=== PATIENT | female | born 1975 | race Caucasian/White ===

== ENCOUNTER → 2017-12-15 09:40 | Outpatient (CLI) | payer BC, SELFPAY ==
--- NOTE | 2017-12-15 09:45 | US_ITS ---
US abdomen complete COMPARISON: None HISTORY: Right flank pain and back pain, some bloating TECHNIQUE: Ultrasound abdomen complete FINDINGS: The pancreas appears normal though portion of the tail is obscured by bowel gas. The liver is normal size and liver parenchyma appears normal. The gallbladder is normal in size showing partial septation near the neck and appears be small amount biliary sludge near the neck. There are no definite gallstones seen. The common bile duct is normal in caliber. The right kidney measures 9.0 x 4.3 x 5.7 cm and shows a good cortical medullary junction with no abnormality noted. The spleen is normal. The left kidney measures 8.8 x 4.2 x 6.1 cm and shows a good cortical medullary junction with no abnormality. The portal vein is normal caliber. The aorta is normal caliber with no significant arteriosclerotic plaquing noted. IMPRESSION: Small amount biliary sludge otherwise essentially unremarkable ultrasound the abdomen
== END ==
PROVIDERS: PCP Internal Medicine Adolescent Medicine; Visit Provider Internal Medicine Adolescent Medicine
DX: R10.9 Unspecified abdominal pain (principal)
CPT/HCPCS: 76700

== ENCOUNTER → 2017-12-27 10:58 | Outpatient (CLI) | payer BC, SELFPAY ==
--- NOTE | 2017-12-27 11:03 | NM_ITS ---
NM hepatobiliary wo pharm HISTORY: Right-sided pain, with bloating, abnormal gallbladder ultrasound ITS.REASON: GB SLUDGE ORDERING PHYSICIAN: Jimmy Varner MD PATIENT AGE: 42 years COMPARISON: None DOSE: 7.47 MCI TC choletec Inj into RT ANT Fatty Meal Ensure, no pain reported with fatty meal FINDINGS: Homogeneous activity is present within the hepatic parenchyma. Activity is present in the gallbladder by 5 minutes. Activity is present in the small bowel by 30 minutes. The gallbladder ejection fraction is calculated to be 16% The patient did not report pain or other symptoms during the fatty meal. IMPRESSION: 1. No evidence of common or cystic duct obstruction. 2. Low gallbladder ejection fraction of 16%. No pain was reported with the fatty meal
== END ==
PROVIDERS: PCP Internal Medicine Adolescent Medicine; Visit Provider Internal Medicine Adolescent Medicine
DX: K82.8 Other specified diseases of gallbladder (principal)
CPT/HCPCS: 78226; A9537

== ENCOUNTER → 2018-01-09 14:15 | Outpatient (CLI) | payer BC, SELFPAY ==
[2018-01-09 15:19] LABS: Alanine Aminotransferase 17 U/L (12-78); Albumin Level 3.4 gm/dL (3.4-5.0); Albumin/Globulin Ratio 1.1 (1.1-1.8); Alkaline Phosphatase 80 U/L (46-116); Aspartate Amino Transferase 30 U/L (15-37); Bilirubin,Total 0.5 mg/dL (0.2-1.0); Blood Urea Nitrogen 7 mg/dL (7-18); Calcium 8.7 mg/dL (8.5-10.1); Carbon Dioxide 29 mmol/L (21.0-32.0); Chloride 103 mmol/L (98-107); Creatinine,Serum 0.75 mg/dL (0.55-1.02); Estimated Glomerular Filt Rate 86 ml/min (>60); GFR (African American) 104 ML/MIN (>60); Globulin 3.2 gm/dl (1.3-3.2); Glucose 86 mg/dL (74-106); Sodium 139 mmol/L (136-145); Total Protein,Serum 6.6 gm/dL (6.4-8.2)
[2018-01-09 15:31] LABS: Basophils # 0.1 K/mm3 (0-0.2); Basophils % 0.6 % (0.1-2.0); Eosinophils # 0.1 K/mm3 (0.0-0.4); Eosinophils % 1.6 % (0.1-12.0); Hematocrit 42.4 % (37.0-47.0); Hemoglobin 14.5 g/dL (12.2-16.2); Lymphocytes # 2.1 K/mm3 (0.7-4.5); Lymphocytes % 24.6 K/mm3 (10-50); Mean Corpuscular HGB Conc 34.2 g/dL (31.8-35.4); Mean Corpuscular Hemoglobin 28.6 pg (27.0-31.2); Mean Corpuscular Volume 83.7 fl (81-99); Mean Platelet Volume 7.3 fl (7.4-10.4); Monocytes # 0.5 K/mm3 (0.1-1.0); Monocytes % 5.4 % (1.7-9.3); Neutrophils # 5.9 K/mm3 (1.8-7.8); Neutrophils % 67.8 % (37.0-80.0); Platelet Count 279 K/mm3 (142-424); Red Blood Count 5.06 M/mm3 (4.20-5.40); Red Cell Distribution Width 12.9 % (11.5-17.5); White Blood Count 8.7 K/mm3 (4.8-10.8)
[2018-01-09 18:01] LABS: HCG Qualitative, Serum Negative (Negative)
== END ==
PROVIDERS: PCP Internal Medicine Adolescent Medicine; Visit Provider Surgery
DX: K82.8 Other specified diseases of gallbladder (principal)
CPT/HCPCS: 36415; 80053; 84703; 85025

== ENCOUNTER → 2020-11-23 09:55 | Outpatient (CLI) | payer BC, SELFPAY ==
[2020-11-23 10:26] LABS: Basophils # 0.1 K/mm3 (0-0.2); Basophils % 0.7 % (0.1-2.0); Eosinophils # 0.1 K/mm3 (0.0-0.4); Eosinophils % 1.7 % (0.1-12.0); Hematocrit 43.3 % (37.0-47.0); Hemoglobin 14.7 g/dL (12.2-16.2); Lymphocytes % 27.2 % (10-50); Mean Corpuscular HGB Conc 34.1 g/dL (31.8-35.4); Mean Corpuscular Hemoglobin 29.4 pg (27.0-31.2); Mean Corpuscular Volume 86.3 fl (81-99); Mean Platelet Volume 8.2 fl (7.4-10.4); Monocytes # 0.3 K/mm3 (0.1-1.0); Neutrophils # 4.8 K/mm3 (1.8-7.8); Neutrophils % 66.4 % (37.0-80.0); Platelet Count 314 K/mm3 (142-424); Red Blood Count 5.02 M/mm3 (4.20-5.40); Red Cell Distribution Width 13.4 % (11.5-17.5); White Blood Count 7.2 K/mm3 (4.8-10.8)
[2020-11-23 10:52] LABS: Alanine Aminotransferase 27 U/L (12-78); Albumin/Globulin Ratio 1.5 (1.1-1.8); Alkaline Phosphatase 93 U/L (38-126); Anion Gap 11.3 mEq/L (5-15); Aspartate Amino Transferase 47 U/L (14-36); Bilirubin,Total 0.7 mg/dl (0.2-1.3); Blood Urea Nitrogen 8 mg/dl (7-17); Calcium 8.9 mg/dl (8.4-10.2); Carbon Dioxide 28 mmol/L (22.0-30.0); Chloride 101 mmol/L (98-107); Chol/HDL Ratio 3.9 (1-3.5); Cholesterol 212 mg/dl (140-200); Estimated Glomerular Filt Rate 91 ml/min (>60); GFR (African American) 111 ML/MIN (>60); Globulin 2.7 g/dL (1.3-3.2); Glucose 89 mg/dl (74-100); HDL Cholesterol 55 mg/dl (40-60); Potassium 4.3 mmoL/L (3.5-5.1); Sodium 136 mmol/L (136-145); Total Protein,Serum 6.7 g/dl (6.3-8.2); Triglycerides 105 mg/dl (30-150); VLDL Cholesterol 21 mg/dL (0-40)
[2020-11-23 11:03] LABS: Direct LDL Cholesterol 123.06 mg/dL (100-129)
[2020-11-23 11:11] LABS: 25-OH Vitamin D, Total 33.1 ng/mL (30-100)
[2020-11-23 11:23] LABS: Thyroid Stimulating Hormone 0.76 uIU/mL (0.465-4.68)
[2020-11-23 11:42] LABS: Vitamin B12 481 pg/mL (239-931)
== END ==
PROVIDERS: Visit Provider Internal Medicine Adolescent Medicine
DX: Z00.00 Encounter for general adult medical examination without abnormal findings (principal); R53.81 Other malaise; E66.3 Overweight; Z68.29 Body mass index [BMI] 29.0-29.9, adult
CPT/HCPCS: 36415; 80053; 80061; 82306; 82607; 84443; 85025

== ENCOUNTER → 2022-04-18 07:15 | Outpatient (CLI) | payer BC, SELFPAY ==
--- NOTE | 2022-04-18 07:24 | CT_ITS ---
FINAL REPORT TECHNIQUE: Thin section axial images were obtained from the lung bases to the pubic symphysis without IV contrast. Coronal reconstruction images were obtained from the axial data. Exam was performed using dose reduction technique. CLINICAL HISTORY: GROSS HEMATURIA/STONE PROTOCOL, bilat flank pain. recent UTI FINDINGS: There are no renal or ureteral stones. There is no hydronephrosis or perinephric stranding. There are postoperative changes of cholecystectomy. The remaining unenhanced solid abdominal organs are unremarkable. There is no evidence of small bowel obstruction. The appendix is not identified. There are no secondary findings of appendicitis. GI tract is without acute abnormality. There is no lymphadenopathy or ascites. The uterus is enlarged and lobular likely related to fibroids. There are small bilateral ovarian cyst, likely functional. No acute osseous abnormality is identified. IMPRESSION: No renal or ureteral stones. No hydronephrosis. Small bilateral ovarian cyst, likely functional. Reviewed, Interpreted and Dictated by Angy Hoffman MD Transcribed by Solange Yeung Authenticated and [facility]
== END ==
PROVIDERS: PCP Internal Medicine Adolescent Medicine; Visit Provider Internal Medicine Adolescent Medicine
DX: R31.0 Gross hematuria (principal)
CPT/HCPCS: 74176